=== PATIENT | male | born 1945 | race Caucasian/White ===

== ENCOUNTER 2016-08-20 16:29 | Emergency (ER) | payer MEDICARE ==
[~2016-08-20] VITALS: Ht 177.8 cm; Wt 80.0 kg
[~2016-08-20 16:29] MED LIST: TAMS0.4C67 PO; VIAG50TA PO
[2016-08-20 16:40] VITALS: BP 140/74; PULSE 58; RESP 18; TEMP 97.7; O2SAT 98
[2016-08-20] MEDS ORDERED: TAMS5CAP PO (16:59)
[2016-08-20 17:01] LABS: BLOOD, URINE LARGE (NEG); GLUCOSE,URINE NEG (NEG); KETONE, URINE NEG (NEG); NITRITE,URINE NEG (NEG); PH, URINE 5.5 (5.0-8.5)
[2016-08-20 17:05] LABS: METHOD OF COLLECTION CLEAN CATCH; URINE COLOR YELLOW (YELLW/STRAW)
[2016-08-20 17:06] LABS: COMMENT (UR) CULT NOT INDICATED; CULTURE IF INDICATED CULT NOT INDICATED; SQUAMOUS EPITHELIAL CELL URINE 0-5 /hpf (0-5); WBC, URINE 0-2 /hpf (0-5)
[2016-08-20] MEDS ORDERED: ONDANSETRON HCL 4 MG/2 ML VIAL ONE (17:35)
[2016-08-20] MEDS ORDERED: MORPHINE SULFATE 4 MG/ML INJ IV PUSH ONE (17:45)
[2016-08-20] MEDS ORDERED: KETOROLAC TROMETHAMINE 30 MG/ML (IVP) VIAL IV PUSH ONE (17:45)
[2016-08-20] MEDS ORDERED: ONDANSETRON HCL 4 MG/2 ML VIAL IV PUSH ONE (17:45)
[2016-08-20] MEDS ORDERED: SODIUM CHLOR 0.9% 1000 ML INJ 1,000 ML IV ONE (17:45)
--- NOTE | 2016-08-20 17:45 | PD ---
HPI Chief Complaint: Flank/Kidney Pain Time Seen by Provider: 17:20 Travel History International Travel<30 days: No Contact w/Intl Traveler<30days: No Traveled to known affect area: No History of Present Illness HPI 70-year-old male complains of left flank pain and left-sided abdominal pain. Patient states that the symptoms started 2 days ago. Patient states that the pain sharp severe pain started on the left flank area with radiation to left side abdomen. Patient denies any fever chills. Patient denies any dysuria or frequency. Patient denies any history kidney stone. Patient states that he has nausea but past 3 days and vomited today. Patient denies any recent injury. Patient has history of BPH and on Flomax. Patient has history of irregular heartbeat. PFSH Past Medical History Cancer: Yes (SKIN CANCER removed) Cardiovascular Problems: Yes (IRREGULAR HEART RATE occ) Diabetes: No Endocrine: No Genitourinary: Yes (ENLARGED PROSTATE) Hepatitis: No Hiatal Hernia: No Immune Disorder: No Musculoskeletal: Yes (DEGENERATED DISK DISEASE) Neurologic: No Psychiatric: No Reproductive: No Respiratory: No Thyroid Disease: No Influenza Vaccination: No ?: Not Past Surgical History Abdominal Surgery: Yes (HERNIA REPAIR) AICD: No Cardiac Surgery: No Ear Surgery: No Endocrine Surgery: No Eye Surgery: Yes (left eye cataract removal) Genitourinary Surgery: No Gynecologic Surgery: No Joint Replacement: No Oral Surgery: No Pacemaker: No Thoracic Surgery: No Other Surgery: Yes Social History Alcohol Use: Yes (OCC WINE) Tobacco Use: No Substance Use: No Allergies-Medications (Allergen,Severity, Reaction): Coded Allergies: No Known Allergies (Unverified , 08/20/16) Reported Meds & Prescriptions Reported Meds & Active Scripts Active Reported Flomax (Tamsulosin HCl) 0.4 Mg Cap 0.4 Mg PO HS Review of Systems General / Constitutional: No: Fever Eyes: No: Visual changes HENT: No: Headaches Cardiovascular: No: Chest Pain or Discomfort Respiratory: No: Shortness of Breath Gastrointestinal: Positive: Nausea, Vomiting, Abdominal Pain Genitourinary: No: Dysuria Musculoskeletal: No: Pain Skin: No Rash Neurologic: No: Weakness Psychiatric: No: Depression Endocrine: No: Polydipsia Hematologic/Lymphatic: No: Easy Bruising Physical Exam Narrative GENERAL: Well-nourished, well-developed patient. SKIN: Focused skin assessment warm/dry. HEAD: Normocephalic. EYES: No scleral icterus. No injection or drainage. NECK: Supple, trachea midline. No JVD or lymphadenopathy. CARDIOVASCULAR: Regular rate and rhythm without murmurs, gallops, or rubs. RESPIRATORY: Breath sounds equal bilaterally. No accessory muscle use. GASTROINTESTINAL: Abdomen soft, nondistended. Patient has mild to moderate tenderness on palpation left mid abdomen. No rebound tenderness. No mass. MUSCULOSKELETAL: No cyanosis, or edema. BACK: Patient has moderate tenderness on palpation left flank area. Neurologic exam normal. Data Data Last Documented VS Vital Signs Date Time Temp Pulse Resp B/P Pulse Ox O2 Delivery O2 Flow Rate FiO2 08/20/16 18:31 18 08/20/16 18:30 77 147/76 100 Room Air 08/20/16 16:40 97.7 Orders Urinalysis - C+S If Indicated (08/20/16 16:51) Ondansetron Inj (Zofran Inj) (08/20/16 17:35) Ketorolac Inj (Toradol Inj) (08/20/16 17:45) Ondansetron Inj (Zofran Inj) (08/20/16 17:45) Morphine Inj (Morphine Inj) (08/20/16 17:45) Sodium Chlor 0.9% 1000 Ml Inj (Ns 1000 M (08/20/16 17:45) Complete Blood Count With Diff (08/20/16 17:39) Comprehensive Metabolic Panel (08/20/16 17:39) Ct Abd/Pel W/O Iv Contrast (08/20/16 18:02) Hydromorphone Pf Inj (Dilaudid Pf Inj) (08/20/16 18:30) Labs Laboratory Tests Test 08/20/16 08/20/16 16:55 17:31 Urine Collection Type CLEAN CATCH Urine Color YELLOW Urine Turbidity CLEAR Urine pH 5.5 Urine Specific [place] 1.024 Urine Protein NEG mg/dL Urine Glucose (UA) NEG mg/dL Urine Ketones NEG mg/dL Urine Occult Blood LARGE Urine Nitrite NEG Urine Bilirubin NEG Urine Leukocyte Esterase NEG Urine RBC 50-99 /hpf Urine WBC 0-2 /hpf Urine Squamous Epithelial 0-5 /hpf Cells Microscopic Urinalysis Comment CULT NOT INDICATED Urine Collection Time 16:55 White Blood Count 13.2 TH/MM3 Red Blood Count 4.77 MIL/MM3 Hemoglobin 14.5 GM/DL Hematocrit 42.4 % Mean Corpuscular Volume 88.8 FL Mean Corpuscular Hemoglobin 30.4 PG Mean Corpuscular Hemoglobin 34.3 % Concent Red Cell Distribution Width 11.9 % Platelet Count 206 TH/MM3 Mean Platelet Volume 8.3 FL Neutrophils (%) (Auto) 83.5 % Lymphocytes (%) (Auto) 12.0 % Monocytes (%) (Auto) 3.7 % Eosinophils (%) (Auto) 0.3 % Basophils (%) (Auto) 0.5 % Neutrophils # (Auto) 11.0 TH/MM3 Lymphocytes # (Auto) 1.6 TH/MM3 Monocytes # (Auto) 0.5 TH/MM3 Eosinophils # (Auto) 0.0 TH/MM3 Basophils # (Auto) 0.1 TH/MM3 CBC Comment DIFF FINAL Differential Comment Sodium Level 140 MEQ/L Potassium Level 4.3 MEQ/L Chloride Level 105 MEQ/L Carbon Dioxide Level 25.2 MEQ/L Anion Gap 10 MEQ/L Blood Urea Nitrogen 17 MG/DL Creatinine 1.30 MG/DL Estimat Glomerular Filtration 54 ML/MIN Rate Random Glucose 119 MG/DL Calcium Level 8.7 MG/DL Total Bilirubin 0.3 MG/DL Aspartate Amino Transf 18 U/L (AST/SGOT) Alanine Aminotransferase 23 U/L (ALT/SGPT) Alkaline Phosphatase 67 U/L Total Protein 7.2 GM/DL Albumin 3.8 GM/DL MDM Medical Decision Making Medical Screen Exam Complete: Yes Emergency Medical Condition: Yes Interpretation(s) 18 O2 PM. CBC WBC 13.2. 83 neutrophil. UA positive RBC. CMP within normal limit. 19 12 PM. Last Impressions Abdomen/Pelvis CT 08/20/161801 Signed Impressions: Service Date/Time: Saturday, August 20, 2016 18:10 - CONCLUSION: 1. There is a 3 mm stone in the left ureter located at the ureterovesical junction causing moderate to severe left hydronephrosis and hydroureter. 2. There is also a 3 mm stone in the distal right ureter just proximal to the ureterovesical junction. However, it is not causing any signs of obstruction. 3. There are 3 nonobstructing left renal stones measuring up to 5 mm. Kervin Patel MD Differential Diagnosis Differential diagnosis including musculoskeletal, nephrolithiasis, pyelonephritis, colitis. Narrative Course 70-year-old male with left flank pain left side abdominal pain. Normal saline solution 1 L IV bolus. Toradol 30 mg IV. Morphine 2 mg IV. Zofran 4 mg IV. Dilaudid 1 mg IV given. 192 PM. Patient's feeling much better. Diagnosis Primary Impression: Nephrolithiasis Patient Instructions: General Instructions Additional Instructions: Take medications as directed. Encouraged by mouth fluids. Strain all urine. Follow-up with urologist. Return if persistent pain, intractable pain, fever, persistent vomiting. Med/Other Pt SpecificInfo: Prescription(s) given Scripts Ondansetron Odt (Zofran Odt)4 Mg Tab4 Mg SL Q6HR PRN (Nausea/Vomiting) #10 TAB Prov:Soren Andrade MD 08/20/16 Hydrocodone-Acetaminophen ([place])5-325 mg Tab1 Tab PO Q6H PRN (PAIN) #30 TAB Prov:Soren Andrade MD 08/20/16 Disposition: 01 DISCHARGE HOME Condition: Stable Soren Andrade MD Aug 20, 2016 17:45
[2016-08-20 17:47] LABS: BASOPHIL # 0.1 TH/MM3 (0-0.2); BASOPHIL % 0.5 % (0.0-2.0); EOSINOPHIL % 0.3 % (0.0-4.0); HEMATOCRIT 42.4 % (39.0-51.0); LYMPHOCYTE # 1.6 TH/MM3 (1.0-4.8); MEAN CELL VOLUME 88.8 FL (80.0-100.0); MEAN CORPUSCULAR HEMOGLOBIN 30.4 PG (27.0-34.0); MEAN CORPUSCULAR HGB CONC 34.3 % (32.0-36.0); MONO % 3.7 % (0.0-8.0); NEUT % 83.5 % (16.0-70.0); PLATELET COUNT 206 TH/MM3 (150-450); RED BLOOD COUNT 4.77 MIL/MM3 (4.50-5.90); RED CELL DISTRIBUTION WIDTH 11.9 % (11.6-17.2); WHITE BLOOD COUNT 13.2 TH/MM3 (4.0-11.0)
[2016-08-20 17:49] LABS: HEMO FLAGS DIFF FINAL
[2016-08-20 18:01] LABS: CHLORIDE 105 MEQ/L (98-107); POTASSIUM 4.3 MEQ/L (3.5-5.1); SODIUM (NA) 140 MEQ/L (136-145)
[2016-08-20 18:04] LABS: ANION GAP 10 MEQ/L (5-15); BICARBONATE 25.2 MEQ/L (21.0-32.0); BLOOD UREA NITROGEN 17 MG/DL (7-18)
[2016-08-20 18:07] LABS: ALT (GPT) 23 U/L (12-78); AST (GOT) 18 U/L (15-37); GLOMERULAR FILTRATION RATE 54 ML/MIN (>89)
[2016-08-20 18:09] LABS: TOTAL BILIRUBIN ADULT 0.3 MG/DL (0.2-1.0)
[2016-08-20 18:10] LABS: ALKALINE PHOSPHATASE 67 U/L (45-117)
[2016-08-20 18:30] VITALS: BP 147/76; PULSE 77; RESP 18; O2SAT 100
[2016-08-20] MEDS ORDERED: HYDROmorphone HCL PF 1 MG/ML VIAL IV PUSH ONE (18:30)
[2016-08-20 19:05] VITALS: BP 145/68; PULSE 72; RESP 18; O2SAT 99
--- NOTE | 2016-08-20 19:05 | RADHPO ---
EXAM DATE/TIME: 08/20/2016 18:10 [facility] COMPARISON: No previous studies available for comparison. INDICATIONS : Left flank pain. ORAL CONTRAST: No oral contrast ingested. RADIATION DOSE: 14.77 CTDIvol (mGy) MEDICAL HISTORY : None SURGICAL HISTORY : Hernia repair. ENCOUNTER: Initial ACUITY: 2 days PAIN SCALE: 8/10 LOCATION: Left flank TECHNIQUE: Volumetric scanning of the abdomen and pelvis was performed. Using automated exposure control and ad justment of the mA and/or kV according to patient size, radiation dose was kept as low as reasonably achievable to obtain optimal diagnostic quality images. FINDINGS: LOWER LUNGS: The visualized lower lungs are clear. LIVER: Homogeneous density without lesion. There is no dilation of the biliary tree. No calcified gallston es. SPLEEN: Normal size without lesion. PANCREAS: Within normal limits. KIDNEYS: There is moderate to severe left hydronephrosis and hydroureter caused by a 3 mm stone at the left ur eterovesical junction. There is perinephric and periureteric stranding. There is also a 3 mm stone in the distal right ureter just proximal to the ureterovesical junction but is only causing mild distal hydroureter. There are 3 nonobstructing stones in left kidney measuring between 2 mm and 5 mm. ADRENAL GLANDS: Within normal limits. VASCULAR: There is no aortic aneurysm. There is mild atherosclerotic disease. BOWEL/MESENTERY: The stomach, small bowel, and colon demonstrate no acute abnormality. There is no free intraperitone al air or fluid. ABDOMINAL WALL: Within normal limits. RETROPERITONEUM: There is no lymphadenopathy. BLADDER: No wall thickening or mass. REPRODUCTIVE: Within normal limits. INGUINAL: There is no lymphadenopathy or hernia. MUSCULOSKELETAL: There are degenerative changes of the lumbar spine. CONCLUSION: 1. There is a 3 mm stone in the left ureter located at the ureterovesical junction causing moderate t o severe left hydronephrosis and hydroureter. 2. There is also a 3 mm stone in the distal right ureter just proximal to the ureterovesical junction . However, it is not causing any signs of obstruction. 3. There are 3 nonobstructing left renal stones measuring up to 5 mm. Kervin Patel MD on August 20, 2016 at 18:59 Board Certified Radiologist. This report was verified electronically.
[2016-08-20] MEDS ORDERED: ZOFR4TAB3 SL (19:23)
[2016-08-20] MEDS ORDERED: NORC5TAB PO (19:23)
[2016-08-20 19:48] VITALS: BP 145/68
== END 2016-08-20 19:50 | disposition home or self-care (01) ==
LOC: PHED 16:29
DX: N13.2 Hydronephrosis with renal and ureteral calculous obstruction (principal)
CPT/HCPCS: 74176; 80053; 81001; 85025; 96361; 96374; 96375; 99285; J1170; J1885; J2270; J2405; J7030